=== PATIENT | female | born 1945 | race Two or more races ===

== ENCOUNTER 2018-11-11 14:24 | Inpatient (IN) | payer OTHER ==
[~2018-11-11] VITALS: Ht 152.4 cm; Wt 59.0 kg
[2018-11-29] MEDS ORDERED: LIPIT PO (11:13)
[2018-11-29] MEDS ORDERED: LEVOTHY PO (11:14)
[2018-11-29] MEDS ORDERED: CALTRATE 600+D1 EAC1 PO (11:14)
[2018-11-29] MEDS ORDERED: PEPCID40 MG PO (11:15)
[2018-11-29] MEDS ORDERED: TOPROL PO (11:15)
[2018-11-29] MEDS ORDERED: CARBIDOPA-LEVO1 EAC3 (12:15)
[2018-12-03] MEDS ORDERED: LEVOTHYROXINE75 MCG PO (07:59)
[2018-12-03] MEDS ORDERED: ATORVASTATIN CA10 MG PO (07:59)
[2018-12-03] MEDS ORDERED: TOPROL XL25 MG PO (08:01)
[2018-12-05] MEDS ORDERED: OXYC1TAB9 PO (19:39)
[2018-12-05] MEDS ORDERED: INTESTINEX680 M1 PO (19:39)
[2018-12-05] MEDS ORDERED: POLY119PG PO (19:40)
== END 2018-12-05 20:28 | disposition home or self-care (01) | DRG 330 ==
LOC: SURG 11-28 11:45 → O/R 12-03 06:15 → SURG 12-03 06:15
PROVIDERS: ADMIT Colon & Rectal Surgery
PROC: 0DJD8ZZ Inspection of Lower Intestinal Tract, Via Natural or Artificial Opening Endoscopic (ICD-10-PCS; 2018-12-03)
PROC: 0DTN4ZZ Resection of Sigmoid Colon, Percutaneous Endoscopic Approach (ICD-10-PCS; principal; 2018-12-03 21:30)
DX: K57.32 Diverticulitis of large intestine without perforation or abscess without bleeding (principal); K92.1 Melena; E03.8 Other specified hypothyroidism; E78.00 Pure hypercholesterolemia, unspecified; I11.9 Hypertensive heart disease without heart failure; G20 Parkinson's disease; F02.80 Dementia in other diseases classified elsewhere, unspecified severity, without behavioral disturbance, psychotic disturbance, mood disturbance, and anxiety

== ENCOUNTER 2018-12-11 08:37 | Emergency (ER) | payer OTHER ==
[~2018-12-11] VITALS: Ht 152.4 cm; Wt 57.6 kg
[~2018-12-11 08:37] MED LIST: ATORVASTATIN CA10 MG PO; CALTRATE 600+D1 EAC1 PO; CARBIDOPA-LEVO1 EAC3; INTESTINEX680 M1 PO; LEVOTHY PO; LEVOTHYROXINE75 MCG PO; LIPIT PO; OXYC1TAB9 PO; PEPCID40 MG PO; POLY119PG PO; TOPROL PO; TOPROL XL25 MG PO
[2018-12-11] MEDS ORDERED: LANSOPRAZOLE30 MG PO (15:16)
[2018-12-11] MEDS ORDERED: PEPCID AC20 MG PO (15:16)
[2018-12-11] MEDS ORDERED: MAALOX ADVANCE355 ML PO (15:16)
== END 2018-12-11 15:30 | disposition home or self-care (01) ==
LOC: ER 08:37
DX: K29.60 Other gastritis without bleeding (principal)

== ENCOUNTER 2019-12-12 08:00 | Day surgery (SDC) | payer OTHER ==
[~2019-12-12 08:00] MED LIST changes: +LANSOPRAZOLE30 MG PO; +MAALOX ADVANCE355 ML PO; +PEPCID AC20 MG PO
== END 2019-12-12 12:51 | disposition home or self-care (01) ==
LOC: AMB-ENDOS 08:00
PROVIDERS: ATTEND Colon & Rectal Surgery
DX: K57.32 Diverticulitis of large intestine without perforation or abscess without bleeding (principal); K64.1 Second degree hemorrhoids; Z20.828 Contact with and (suspected) exposure to other viral communicable diseases